=== PATIENT | male | born 1995 | race Caucasian/White ===

== ENCOUNTER 2017-02-16 11:25 | Emergency (ER) | payer SELFPAY ==
--- NOTE | 2017-02-16 12:07 | ED.PDOC ---
History of Present Illness - General Chief Complaint: Respiratory Problem Stated Complaint: Difficulty breathing, SOB Time Seen by Provider: 02/16/17 11:41 Source: patient Exam Limitations: no limitations - History of Present Illness Initial Comments: Patient presents with one day of increasing dyspnea. He said it started last night and got worse today. He has an occasional dry cough but said it was a little worse today. He believes that he had a fever last night but did not measure it. He took tylenol today. No sick contacts. Is a former smoker. Does not work around airborne or volatile chemicals. No other complaints. Timing/Duration: 24 hours Severity: mild Improving Factors: nothing Worsening Factors: nothing Associated Symptoms: denies symptoms Allergies/Adverse Reactions: Allergies NO KNOWN ALLERGY Allergy (Verified 02/16/17 11:51) Home Medications: Ambulatory Orders NK [NK] 02/16/17 Review of Systems - Review of Systems Constitutional: States: fever EENTM: States: no symptoms reported Respiratory: States: see HPI Cardiology: States: no symptoms reported Gastrointestinal/Abdominal: States: no symptoms reported Genitourinary: States: no symptoms reported Musculoskeletal: States: no symptoms reported Skin: States: no symptoms reported Neurological: States: no symptoms reported Endocrine: States: no symptoms reported Hematologic/Lymphatic: States: no symptoms reported Past Medical History (General) - Patient Medical History Hx Asthma: No - Vaccination History Hx Tetanus, Diphtheria Vaccination: Yes Hx Influenza Vaccination: Yes - Social History Hx Tobacco Use: No Hx Alcohol Use: No Hx Substance Use: No Hx Substance Use Treatment: No Hx Depression: No - Activities of Daily Living Hospice Agency (if applicable):: None - Female History Patient is a Female of Child Bearing Age (10 -59 yrs old): No Patient : No Family Medical History - Family History Mother Family History: Unknown Physical Exam - Physical Exam General Appearance: Alert Ears, Nose, Throat: normal ENT inspection Neck: non-tender, full range of motion, supple Respiratory: lungs clear Cardiovascular/Chest: normal peripheral pulses, regular rate, rhythm Gastrointestinal/Abdominal: normal bowel sounds, non tender, soft Progress - Progress Progress: 02/16/17 13:29 wbc 16.5 influenza negative rapid strep negative CXR negative oxygen saturations 89% Duonebs increased saturations to 92%. Laboratory Tests 02/16/17 02/16/17 02/16/17 12:12 12:12 13:00 WBC 16.5 H RBC 5.73 Hgb 16.1 Hct 47.2 MCV 82.4 MCH 28.0 MCHC 34.0 RDW 12.8 Plt Count 263 MPV 8.1 Absolute Neuts (auto) 9.30 H Absolute Lymphs (auto) 3.20 Absolute Monos (auto) 0.90 H Absolute Eos (auto) 3.00 H Absolute Basos (auto) 0.10 Neutrophils % 56.3 Lymphocytes % 19.3 L Monocytes % 5.7 Eosinophils % 18.3 H Basophils % 0.4 Sodium 141 Potassium 4.1 Chloride 107 Carbon Dioxide 27 Anion Gap 11.1 L BUN 18 Creatinine 1.25 BUN/Creatinine Ratio 14.4 Random Glucose 77 Serum Osmolality 282.0 Calcium 9.1 Total Bilirubin 0.4 AST 21 ALT 18 Alkaline Phosphatase 56 Serum Total Protein 7.0 Albumin 4.6 Globulin 2.4 Albumin/Globulin Ratio 1.9 Group A Strep DNA Negative Departure - Departure Clinical Impression: Hypoxemia Disposition: Admit Patient Condition: Good Departure Forms: ED Discharge - Pt. Copy, Patient Portal Self Enrollment Diet: resume usual diet Activity: increase activity as tolerated Home Medications: Ambulatory Orders NK [NK] 02/16/17
--- NOTE | 2017-02-16 12:38 | RAD ---
EXAM DESCRIPTION: XR CHEST 2 VIEWS CLINICAL HISTORY: Dyspnoea COMPARISON: None TECHNIQUE: PA/lateral FINDINGS: Heart size is normal. The lungs are clear. No acute bony abnormality. IMPRESSION: No acute cardiopulmonary process. Electronically signed by: Natanael Jarquin MD 02/16/2017 12:38 PM CDT
[2017-02-16 13:03] VITALS: TEMP 98
[2017-02-16] MEDS ORDERED: IPRATROPIUM/ALBUTEROL 3 ML VIAL NEB ONE (13:04)
[2017-02-16] MEDS ORDERED: AZITHROMYCIN IV 500 MG in SODIUM CHLORIDE 0.9% 250ML 250 ML IVPB ONE (13:27)
[2017-02-16] MEDS ORDERED: cefTRIAXone SODIUM 1 GM in SODIUM CHL 0.9% 50ML MIN-BAG+ 50 ML IVPB ONE (13:27)
[2017-02-16] MEDS ORDERED: AZITHROMYCIN IV 500 MG VIAL IVPB ONE (13:33)
[2017-02-16] MEDS ORDERED: SODIUM CHLORIDE 0.9% 250ML 250 ML ONE (13:33)
[2017-02-16] MEDS ORDERED: SODIUM CHL 0.9% 50ML MIN-BAG+ 50 ML IVPB ONE (13:34)
[2017-02-16] MEDS ORDERED: cefTRIAXone SODIUM 1 GM VIAL ONE ×2 (13:34→13:57)
[2017-02-16] MEDS ORDERED: AZITHROMYCIN 250 MG TAB PO ONE (13:52)
[2017-02-16] MEDS ORDERED: cefTRIAXone SODIUM 1 GM VIAL IM ONE (13:53)
[2017-02-16] MEDS ORDERED: LIDOCAINE 1% 10 ML VIAL INJ ONE (13:59)
[2017-02-16 14:33] VITALS: BP 118/72; O2SAT 95
== END 2017-02-16 14:27 | disposition left against medical advice (07) ==
LOC: ER 11:25
DX: R09.02 Hypoxemia (principal); Z87.891 Personal history of nicotine dependence
CPT/HCPCS: 36415; 71020; 80053; 85025; 87040; 87070; 87502; 87651; 94640; J0696; J7620; Q0144